=== PATIENT | female | born 1970 | race Caucasian/White ===

== ENCOUNTER → 2016-07-08 | Outpatient (CLI) | payer OTHER ==
[~2016-07-08] MED LIST: ASCA500 PO; ASPI-391 PO; BUSP30TA2 PO; CALC500C3 PO; CLON1TAB3 PO; CRY28 PO; CYM/60 PO; DIPH25CA65 PO; GLUCTAB7 PO; HYDR-5688 PO; MAGN1CAP2 PO; MULT-506 PO; OXYC-57 PO; SUMA100T16 PO; WARF2TAB PO; ZOLP10TA PO
--- NOTE | 2016-07-08 15:07 | DIAGNOSTIC IMAGING REPORT ---
RIGHT GROIN ULTRASOUND CLINICAL HISTORY: Right groin pain. Evaluate for hernia. COMPARISON STUDY: MRI of the right hip September 04, 2015. TECHNIQUE: Sonography of the right groin with and without stress maneuvers was performed. FINDINGS: No right inguinal hernia was identified by sonography. No mass or fluid collection was identified within the right groin. IMPRESSION: No right groin hernia identified by sonography. Electronically signed by: Matt Keith M.D. 07/08/2016 3:06 PM Dictated Date/Time: 07/08/2016 3:03 PM
== END | disposition home or self-care (01) ==
LOC: C.ULTR 14:26
PROVIDERS: ATTEND Physical Medicine & Rehabilitation Sports Medicine
DX: M76.891 Other specified enthesopathies of right lower limb, excluding foot (principal)

== ENCOUNTER → 2016-09-03 | Outpatient (CLI) | payer OTHER ==
[2016-09-03 16:55] LABS: BASO ABS # 0.07 K/uL (0-0.2); COMPLETE YES; HEMATOCRIT 41.3 % (37-47); IG% 0.1 %; MEAN CELL VOLUME 98.6 fL (80-100); MEAN CORPUSCULAR HEMOGLOBIN 33.2 pg (25-34); MEAN CORPUSCULAR HGB CONC 33.7 g/dl (32-36); MEAN PLATELET VOLUME 10.5 fL (7.4-10.4); MONO % 8.3 %; NEUT % 56.6 %; PLATELET COUNT 327 K/uL (130-400); RED BLOOD COUNT 4.19 M/uL (4.2-5.4); WHITE BLOOD COUNT 6.77 K/uL (4.8-10.8)
[2016-09-03 17:24] LABS: BLOOD UREA NITROGEN 13 mg/dl (7-18); BUN/CREATININE RATIO 17.4 (10-20); CALCIUM 8.3 mg/dl (8.5-10.1); CARBON DIOXIDE 31 mmol/L (21-32); CHLORIDE 104 mmol/L (98-107); CREATININE 0.76 mg/dl (0.60-1.20); GLUCOSE 80 mg/dl (70-99); POTASSIUM 3.7 mmol/L (3.5-5.1); SODIUM 139 mmol/L (136-145)
== END | disposition home or self-care (01) ==
LOC: C.LAB1850 15:35
PROVIDERS: ATTEND Physician Assistant
DX: M76.891 Other specified enthesopathies of right lower limb, excluding foot (principal)

== ENCOUNTER → 2016-09-14 | Day surgery (SDC) | payer OTHER ==
[2016-09-09 13:50] VITALS: Ht 162.6 cm; Wt 49.1 kg
[~2016-09-14] VITALS: Ht 162.6 cm; Wt 49.1 kg
[~2016-09-14] MED LIST changes: +ATROPINE SULFATE 0.1 MG/ML 5ML SYR IV PRN; +BUPIVACAINE/EPINEPHRINE 0.5% MPF 1:200,000 30 ML VIAL ONE; +CEFAZOLIN 2000 MG/60 ML D5W IV SCH; +DEXAMETHASONE SOD INJ 4 MG/ML VIAL ONE; +EpHEDrine SULFATE INJ 50 MG/ML AMP IV PRN; +FENTANYL CITRATE INJ 50 MCG/1 ML 2 ML VIAL ONE; +HYDROmorphone INJ 1 MG/ML SYR ONE; +HYDROmorphone INJ 2 MG/ML SYR/VIAL IV PRN; +KETOROLAC TROMETHAMINE 30 MG/ML VIAL IV. PRN; +LACTATED RINGER'S 1000ML 1,000 ML IV SCH; +LIDOCAINE HCL 2% 2 ML VIAL (20MG/ML) ONE; +MIDAZOLAM HCL 1 MG/ML 2ML VIAL ONE; +ONDANSETRON INJ 2 MG/ML 2 ML VIAL IV PRN; +ONDANSETRON INJ 2 MG/ML 2 ML VIAL ONE; -OXYC-57 PO; +OXYCODONE/ACETAMINOPHEN 5-325 TAB PO PRN; +PHENYLEPHRINE 100MCG/ML 5ML SYR IV PRN; +PROPOFOL IV EMULSION 10 MG/ML 20 ML VIAL IV ONE; +ROCURONIUM BROMIDE 10 MG/ML 5 ML VIAL ONE; +SODIUM CHLORIDE 0.9% 1000ML 1,000 ML IV SCH; -WARF2TAB PO
--- NOTE | 2016-09-14 06:33 | History & Physical Bridge Note ---
H&P Re-Evaluation Bridge Note: I have examined the patient, reviewed the History & Physical and in the interval since the performance of the History & Physical I have noted the following changes of clinical significance: No changes noted
--- NOTE | 2016-09-14 06:35 | Discharge Instructions ---
Discharge Instructions Date of Service September 14, 2016. Visit Reason for Visit: Right Adductor Longus Tear With Possible Hernia Discharge Discharge Diagnosis / Problem: tendonopathy Discharge Goals Goal(s): Decrease discomfort, Improve function Medications Stopped Medications Name(s): na Restart Stopped Medication(s): use scripts as directed Activity Recommendations Activity Limitations: as noted below Lifting Limitations: until after follow-up appointment Exercise/Sports Limitations: until after follow-up appointment May Resume Sexual Activity: after follow-up appointment Shower/Bathe: keep incision dry Driving or Machine Use: no limitations Weightbearing Status: Right weightbearing (as tolerated) Anesthesia . Post Anesthesia Instructions: If you have had General Anesthesia or IV Sedation: * Do not drive today. * Resume driving when surgeon permits. * Do not make important decisions or sign legal documents today. * Call surgeon for: 1. Temperature elevations greater than 101 degrees F. 2. Uncontrollable pain. 3. Excessive bleeding. 4. Persistent nausea and vomiting. 5. Medication intolerance (nausea, vomiting or rash). * For nausea and vomiting use only clear liquids such as: tea, soda, bouillon until nausea subsides, then gradually increase diet as tolerated. * If you have any concerns or questions, call your surgeon's office. If physician is unavailable and it is an emergency, call 911 or go to the nearest emergency room. . Instructions / Follow-Up Instructions / Follow-Up DIET: * Resume previous diet. MEDICATIONS: * Please take your prescriptions as instructed at your pre-op appointment and/ or see medication discharge instructions listed above. * If concerns develop, call your physician's office at . SPECIAL CARE INSTRUCTIONS: * Ice/Elevate as instructed. * Keep dressing clean, dry, intact. * Your surgical extremity may be discolored due to prepping agents used on the skin. A bluish-green tint is a normal variant and should not cause alarm. Call your doctor at [phone] if: * Temperature above 101 degrees * Pain not relieved by pain medicine ordered * There is increased drainage or redness from any incision * You have any unanswered questions, problems or concerns. FOLLOW UP VISIT: * If not already scheduled, please call the office at to schedule a follow-up appointment. Diet Recommendations Recommended Home Diet: resume previous diet Procedures Procedures Performed: tendon release and debridement Pending Studies Studies pending at discharge: no Medical Emergencies . Who to Call and When: Medical Emergencies: If at any time you feel your situation is an emergency, please call 911 immediately. . Non-Emergent Contact Non-Emergency issues call your: Specialist Call Non-Emergent contact if: temperature is above 101.5 . . "Provider Documentation" section prepared by Orlando Feliz. .
--- NOTE | 2016-09-14 08:30 | [facility] Post Operative Brief Note ---
Immediate Operative Summary Operative Date September 14, 2016. Pre-Operative Diagnosis Right Adductor Longus Tear Post-Operative Diagnosis Same Procedure(s) Performed Right Groin Open Exploration With Adductor Longus Release And Possible Neurotomy Surgeon Dr Feliz Retort [facility] Surgeon(s) Dr Tucker, Nga Rangel PA-C Estimated Blood Loss trace Findings tendonopathy Fluids (cc crystalloids) 800cc Specimens none Drains none Anesthesia LMA/local Complication(s) None Disposition Recovery Room / PACU
[2016-09-14 10:05] VITALS: TEMP 36.9
--- NOTE | 2016-09-14 10:31 | OPERATIVE REPORT ---
DATE OF OPERATION: 09/14/2016 PREOPERATIVE DIAGNOSIS: Chronic tendinopathy, right adductor brevis and abductor longus. POSTOPERATIVE DIAGNOSIS: Same. OPERATION PERFORMED: Completion of adductor longus and adductor brevis release, open. PERIOPERATIVE SITUATION: Medically cleared female who has had a long protracted course of right groin and hip pain, has had multiple procedures that has eliminated all of her joint pain but still has persistent abductor groin pain. Preoperative assessment included general surgery and ultrasound musculoskeletally performed to identify areas that were still of trouble, and localized area was mostly at the edge of the remaining adductor longus and adductor brevis. This was verified by both myself and the general surgeon under musculoskeletal ultrasound technique. The patient consented to open release and potential hernia repair if one was found with absolutely no guarantees given of eliminating the pain completely. DESCRIPTION OF PROCEDURE: The patient appropriately identified, site verified and area of tenderness verified by myself and the general surgeon and marked with a marking pen. She was then sterilely prepped and draped in usual routine fashion after she was anesthetized. Leg was prepped free. Incision made over the inguinal crease. Blunt dissection carried down to the fascia. This was then incised under direct vision. Multiple veins were then identified and ligated and at no point in time any major nerves were encountered. The adductor longus and brevis tendons were then identified and then released just distal to its attachment to the superior pubic ramus. This was then taken off after both the medial and lateral side of the muscle identified and then using a right angle retractor and lifting some of the muscle tendinous junction off and then releasing it with cautery, at no point in time was any major nerves identified. Everything was completely released and verified by myself and Dr. Tucker who also scrubbed the general surgical support and assessment. The wound was then irrigated and then anesthetized with a roughly 15-18 mL of 0.5% plain Marcaine and then irrigated and then closed using 3-0 Vicryl and 4-0 Monocryl, Dermabond and a light dressing. The patient's hip replacement was located throughout the entire procedure and verified at the end of the case. On my exam, leg lengths were equal. The patient was then transferred to the recovery room in satisfactory condition having tolerated the procedure well. Estimated blood loss was trace. Crystalloid 800 mL. Received 2 grams of Ancef. No DVT prophylaxis required. I attest to the content of the Intraoperative Record and any orders documented therein. Any exceptions are noted below. MTDD
[2016-09-14 10:46] VITALS: BP 133/83; PULSE 81; O2SAT 99
--- NOTE | 2016-09-14 10:47 | Anesthesia Progress Nt - [facility] ---
Anesthesia Post Op Note Date & Time September 14, 2016 at 10:43 Vital Signs Pain Intensity: 5.0 Vital Signs Past 12 Hours Date Time Temp Pulse Resp B/P Pulse Ox O2 Delivery O2 Flow Rate FiO2 09/14/16 10:33 76 16 135/84 98 Room Air 09/14/16 10:05 36.9 80 16 145/85 99 Room Air 09/14/16 09:52 37.5 76 12 141/88 100 Room Air 09/14/16 09:51 81 22 99 09/14/16 09:51 80 22 09/14/16 09:50 141/88 09/14/16 09:46 79 15 100 09/14/16 09:46 79 15 09/14/16 09:45 139/75 09/14/16 09:41 74 15 100 09/14/16 09:41 73 15 09/14/16 09:40 155/90 09/14/16 09:36 71 23 09/14/16 09:36 71 23 100 09/14/16 09:35 156/92 09/14/16 09:31 71 13 09/14/16 09:31 70 13 100 09/14/16 09:30 157/93 09/14/16 09:26 74 16 100 09/14/16 09:26 73 16 09/14/16 09:25 156/84 09/14/16 09:21 79 15 100 09/14/16 09:21 79 15 09/14/16 09:20 161/91 09/14/16 09:16 76 15 09/14/16 09:16 76 15 100 09/14/16 09:15 155/93 09/14/16 09:11 78 19 09/14/16 09:11 78 19 100 09/14/16 09:10 163/78 09/14/16 09:06 88 24 100 09/14/16 09:06 87 24 09/14/16 09:06 36.5 91 16 149/94 100 Diffusion Mask 6 09/14/16 06:40 37.0 71 16 141/92 100 Room Air Notes Mental Status: alert / awake / arousable, participated in evaluation Pt Amnestic to Procedure: Yes Nausea / Vomiting: adequately controlled Pain: adequately controlled Airway Patency, RR, SpO2: stable & adequate BP & HR: stable & adequate Hydration State: stable & adequate Anesthetic Complications: no major complications apparent The intubation was attempted by the family practice resident unsuccessfully and I intubated her with a Llanos 3 blade. In phase II she had a hoarse voice and a sore throat. I explained why that was and suggested throat lozenges. She was friendly and seemed satisfied with the explanation.
--- NOTE | 2016-09-14 13:01 | OPERATIVE REPORT ---
DATE OF OPERATION: 09/14/2016 PATIENT OF: Dr. Feliz. PREOPERATIVE DIAGNOSIS: Right adductor brevis and adductor longus chronic tendinopathy. POSTOPERATIVE DIAGNOSIS: Right adductor brevis and abductor longus, same. PROCEDURE: Open right adductor longus and adductor brevis releases. SURGEON: Dr. Feliz. PRE ASSEMBLY WIRER: Dr. Tucker. SECOND PRE ASSEMBLY WIRER: Dr. Kinsey. THIRD PRE ASSEMBLY WIRER: Wale Kelley PA-C. HISTORY OF PRESENT ILLNESS: This 46-year-old white female presented to the office with complaints of continued right groin pain. She had had multiple seizures previously but persisted with abductor groin pain. She elected to proceed with surgical intervention after being educated about potential risks and outcomes. OPERATION: The patient was taken to the operating room where she was given general anesthetic. She was prepped and draped in usual sterile fashion. Please see Dr. Feliz's operative report for specifics of the procedure. I was present for the entire case from initial patient positioning through final wound closure. Assistance was provided in tissue retraction, hemostasis, and final wound closure. The patient was taken to the recovery room in satisfactory condition. I attest to the content of the Intraoperative Record and any orders documented therein. Any exceptio ns are noted below.
== END | disposition home or self-care (01) ==
LOC: X.SURG 06:23
PROVIDERS: ATTEND Physical Medicine & Rehabilitation Sports Medicine
DX: M76.891 Other specified enthesopathies of right lower limb, excluding foot (principal)

== ENCOUNTER → 2016-11-22 | Outpatient (CLI) | payer OTHER ==
[~2016-11-22] MED LIST changes: -ATROPINE SULFATE 0.1 MG/ML 5ML SYR IV PRN; -BUPIVACAINE/EPINEPHRINE 0.5% MPF 1:200,000 30 ML VIAL ONE; -CEFAZOLIN 2000 MG/60 ML D5W IV SCH; -DEXAMETHASONE SOD INJ 4 MG/ML VIAL ONE; -EpHEDrine SULFATE INJ 50 MG/ML AMP IV PRN; -FENTANYL CITRATE INJ 50 MCG/1 ML 2 ML VIAL ONE; -HYDROmorphone INJ 1 MG/ML SYR ONE; -HYDROmorphone INJ 2 MG/ML SYR/VIAL IV PRN; -KETOROLAC TROMETHAMINE 30 MG/ML VIAL IV. PRN; -LACTATED RINGER'S 1000ML 1,000 ML IV SCH; -LIDOCAINE HCL 2% 2 ML VIAL (20MG/ML) ONE; -MIDAZOLAM HCL 1 MG/ML 2ML VIAL ONE; -ONDANSETRON INJ 2 MG/ML 2 ML VIAL IV PRN; -ONDANSETRON INJ 2 MG/ML 2 ML VIAL ONE; -OXYCODONE/ACETAMINOPHEN 5-325 TAB PO PRN; -PHENYLEPHRINE 100MCG/ML 5ML SYR IV PRN; -PROPOFOL IV EMULSION 10 MG/ML 20 ML VIAL IV ONE; -ROCURONIUM BROMIDE 10 MG/ML 5 ML VIAL ONE; -SODIUM CHLORIDE 0.9% 1000ML 1,000 ML IV SCH
== END | disposition home or self-care (01) ==
LOC: C.RDSM 07:00
PROVIDERS: ATTEND Physical Medicine & Rehabilitation Sports Medicine
DX: M16.11 Unilateral primary osteoarthritis, right hip (principal)

== ENCOUNTER → 2017-02-28 | Outpatient (CLI) | payer OTHER | END | disposition home or self-care (01) | LOC: C.RDSM 10:34 | PROVIDERS: ATTEND Physical Medicine & Rehabilitation Sports Medicine | DX: M25.551 Pain in right hip (principal) ==

== ENCOUNTER → 2017-04-20 | Outpatient (CLI) | payer OTHER | END | disposition home or self-care (01) | LOC: C.RDSM 13:30 | PROVIDERS: ATTEND Physical Medicine & Rehabilitation Sports Medicine | DX: M16.11 Unilateral primary osteoarthritis, right hip (principal); M24.151 Other articular cartilage disorders, right hip; M25.851 Other specified joint disorders, right hip ==